=== PATIENT | male | born 1990 | race Caucasian/White ===

== ENCOUNTER 2016-11-11 21:46 | Emergency (ER) | payer BC | END 2016-11-12 02:40 | disposition home or self-care (01) | LOC: ER1 21:46 | DX: S01.81XA Laceration without foreign body of other part of head, initial encounter (principal); J98.4 Other disorders of lung; J45.909 Unspecified asthma, uncomplicated; V89.2XXA Person injured in unspecified motor-vehicle accident, traffic, initial encounter; Y93.I9 Activity, other involving external motion; Y92.828 Other wilderness area as the place of occurrence of the external cause | CPT/HCPCS: 12014; 70450; 73564; 99283 ==